=== PATIENT | female | born 1995 | race Caucasian/White ===

== ENCOUNTER 2023-01-07 23:27 | Emergency (ER) | payer MEDICAID, SELFPAY ==
[2023-01-07 23:37] VITALS: BP 122/89; PULSE 114; RESP 18; TEMP 36.5; O2SAT 100
[2023-01-08 00:25] VITALS: BP 123/83; PULSE 95; RESP 18; O2SAT 99
--- NOTE | 2023-01-08 01:33 | ED_ITS ---
HPI - General Adult General Chief complaint: Unspecified Complaint, Adult Stated complaint: Skin Problem Time Seen by Provider: 01/07/23 23:49 Related Data Previous Rx's Medication Instructions Recorded mupirocin 2 % topical ointment 1 applic topical BID #15 grams 01/08/23 Allergies Allergy/AdvReac Type Severity Reaction Status Date / Time No Known Drug Allergies Allergy Verified 01/07/23 23:36 PFSH PFSH Social History Do you use any of these nicotine containing products: Vaping Products Second hand tobacco smoke exposure: No How often do you have a drink containing alcohol: 2-3 times a week How many standard drinks containing alcohol do you have on a typical day: 1 or 2 How often do you have six or more drinks on one occasion: Never AUDIT-C Alcohol total score: 3 Non-prescribed substance use: denies use Exam Narrative: Exam Narrative: pleasant. nad. neck supple without LA oropharynx without inflammation. no swelling appreciated. removing band-aid at center of left cheek is ann marie-sized area of mild rubor, mild calor and centrally a 1/2 cm area with exudate/drainage. no fluctuance wiping away this central area, there is a 1/8 inch hole from which I am able to express a small amount of purulence which i collect a wound culture. applied bacitracin and loose gauze bandage Const: Vital Signs, click to edit/add: Vital Signs - 24 hr 01/07/23 23:37 01/08/23 00:25 Temperature 97.7 F Pulse Rate [Left P ulse Oximeter] 114 H 95 Respiratory Rate 18 18 Blood Pressure [Ri ght Upper Arm] 122/89 123/83 Pulse Oximetry 100 99 Oxygen Delivery Me thod Room Air Room Air Course Vital Signs Vital signs: Initial Vital Signs Temperature 97.7 F 01/07/23 23:37 Temperature Source Temporal Artery Scan 01/07/23 23:37 Pulse Rate 114 H 01/07/23 23:37 Pulse Rhythm Regular 01/07/23 23:37 Respiratory Rate 18 01/07/23 23:37 Blood Pressure 122/89 01/07/23 23:37 Blood Pressure Mean 100 01/07/23 23:37 Blood Pressure Position Sitting 01/07/23 23:37 Pulse Oximetry 100 01/07/23 23:37 Oxygen Delivery Method Room Air 01/07/23 23:37 Vital Signs Temperature 97.7 F 01/07/23 23:37 Pulse Rate 114 H 01/07/23 23:37 Respiratory Rate 18 01/07/23 23:37 Blood Pressure 122/89 01/07/23 23:37 Pulse Oximetry 100 01/07/23 23:37 Oxygen Delivery Method Room Air 01/07/23 23:37 Temperature 97.7 F 01/07/23 23:37 Pulse Rate 95 01/08/23 00:25 Respiratory Rate 18 01/08/23 00:25 Blood Pressure 123/83 01/08/23 00:25 Pulse Oximetry 99 01/08/23 00:25 Oxygen Delivery Method Room Air 01/08/23 00:25 Medical Decision Making MDM Narrative Medical decision making narrative: mild cellulitic change on verge of needing oral abx, already draining. Beata understandably quite concerned. should have some staph coverage. see pt discharge plan Discharge Plan Discharge Clinical Impression: Abscess, Cellulitis Patient Disposition: Home w/ Parent or Adult Condition: Stable Additional Instructions: Cleanse daily with mild soap and water. Change twice daily loose gauze dressing and prescription mupirocin antibiotic ointment until seeing essentially no drainage. Then continue with antibiotic ointment to complete a week. Watch for explosion in redness and swelling, spreading redness after 2 days, marked increase in purulent drainage, fever, uncontrolled pain. A wound culture will be pending here and we will contact you if it appears that we need to change antibiotic coverage. Doxycycline from [facility]. Prescriptions: New mupirocin 2 % ointment 1 applic topical BID Qty: 15 0RF Stand Alone Forms: [facility] Info Instructions
== END 2023-01-08 00:33 | disposition home or self-care (01) ==
LOC: ED 01-08 00:27
PROVIDERS: Emergency Provider Family Medicine
DX: L02.01 Cutaneous abscess of face (principal)
CPT/HCPCS: 10060; 87070; 87186; 99283; 99284

== ENCOUNTER 2023-09-19 21:26 | Emergency (ER) | payer MEDICAID, SELFPAY ==
[2023-09-19 21:29] VITALS: BP 112/78; PULSE 93; RESP 18; TEMP 36.8; O2SAT 98; BMI 26.6
--- NOTE | 2023-09-19 22:00 | ED.GENADULT ---
HPI - General Adult General Chief complaint: Extremity Pain/Injury, Upper Stated complaint: 39wks , left arm pain Time Seen by Provider: 09/19/23 21:30 History of Present Illness HPI narrative: This 28-year-old female is 1 week short of her due date in and comes in with redness and swelling in the left antecubital space. She had an iron infusion 5 days ago and again 3 days ago. She developed some redness yesterday and states that it has been spreading out since then. She does not report any fevers. She has erythema typical of a cellulitis in the left antecubital space where her IV was established. She did not have any symptoms at the time of the IV infusions but developed this a couple days after the last infusion. Related Data Home Medications Medication Instructions Recorded Confirmed docosahexaenoic acid 200 mg mg PO 08/30/23 09/04/23 capsule ( DHA) polymyxin B sulfate 10,000 1 drp ophthalmic (eye) Q3H 08/30/23 08/30/23 unit-trimethoprim 1 mg/mL eye drops sertraline 100 mg tablet 150 mg PO 08/30/23 09/04/23 Allergies Allergy/AdvReac Type Severity Reaction Status Date / Time No Known Drug Allergies Allergy Verified 09/04/23 11:17 Review of Systems Status of ROS: Reports: 10 or more systems reviewed and unremarkable except as noted in History and below Narrative: Constitutional: No fevers, no weight gain or loss. Eyes: No discharge. No vision changes. HENT: No congestion, no sore throat, no ear pain. Cardiovascular: No chest pain, no palpitations. Respiratory: No shortness of breath, no wheezes, no cough. Gastrointestinal: No abdominal pain, no vomiting, no diarrhea. Genitourinary: No dysuria, no hematuria. Musculoskeletal: Normal range of motion. Skin: No rashes, no pruritis. Left arm redness and pain with mild swelling. Neurological: No dizziness, weakness, sensory change, speech change. Endo/Heme/Allergies: No bruising or bleeding. No polydipsia. Pysch: no suicidality, no anxiety, no insomnia. All other systems reviewed and are negative. PFSH PFSH Social History Smoking Status: Never smoker Do you use any of these nicotine containing products: None Second hand tobacco smoke exposure: No How often do you have a drink containing alcohol: never How often do you have six or more drinks on one occasion: Never AUDIT-C Alcohol total score: 0 Non-prescribed substance use: denies use service: No Exam Narrative: Exam Narrative: Constitutional: Well-developed, well-nourished, no acute distress. HEENT: Normocephalic, atraumatic. Neck: Normal range of motion. Nontender. Supple. Heart: Intact distal pulses. Lungs: No chest discomfort. No wheezes, rhonchi, or rales. Abdomen: Gravid at full-term. Back: Normal range of motion. Extremities: Normal range of motion. No injury. Skin: Intact. Left antecubital fossa area has erythema with mild swelling and increased warmth typical of cellulitis. The area involved is approximately 6 x 8 cm. There is no swelling or pain in the upper arm proximal to this area. Neurologic: No altered sensation. No weakness. Alert and oriented. Psychiatric: No suicidality. No anxiety or depression. No insomnia. Nursing notes and vitals signs are reviewed. Const: Vital Signs, click to edit/add: Vital Signs - 24 hr 09/19/23 21:29 Temperature 98.2 F Pulse Rate [Pulse Oximeter] 93 Respiratory Rate 18 Blood Pressure [Ri ght Upper Arm] 112/78 Pulse Oximetry 98 Oxygen Delivery Me thod Room Air Course Vital Signs Vital signs: Initial Vital Signs Temperature 98.2 F 09/19/23 21:29 Temperature Source Temporal Artery Scan 09/19/23 21:29 Pulse Rate 93 09/19/23 21:29 Pulse Rhythm Regular 09/19/23 21:29 Respiratory Rate 18 09/19/23 21:29 Blood Pressure 112/78 09/19/23 21:29 Blood Pressure Mean 89 09/19/23 21:29 Blood Pressure Position Supine 09/19/23 21:29 Pulse Oximetry 98 09/19/23 21:29 Oxygen Delivery Method Room Air 09/19/23 21:29 Vital Signs Temperature 98.2 F 09/19/23 21:29 Pulse Rate 93 09/19/23 21:29 Respiratory Rate 18 09/19/23 21:29 Blood Pressure 112/78 09/19/23 21:29 Pulse Oximetry 98 09/19/23 21:29 Oxygen Delivery Method Room Air 09/19/23 21:29 Temperature 98.2 F 09/19/23 21:29 Pulse Rate 93 09/19/23 21:29 Respiratory Rate 18 09/19/23 21:29 Blood Pressure 112/78 09/19/23 21:29 Pulse Oximetry 98 09/19/23 21:29 Oxygen Delivery Method Room Air 09/19/23 21:29 Medical Decision Making MDM Narrative Medical decision making narrative: This 28-year-old female comes in with what appears to be a cellulitis in her left upper extremity after having infusions of iron. The symptoms occurred a couple days after her last infusion. She arrives with normal vital signs and he is otherwise in no acute distress. The patient received a prescription for Keflex. She has a due date for her coming up next week. She is in close touch with her OBGYN physicians in this regard and can follow up as needed. Discharge Plan Discharge Clinical Impression: Cellulitis Patient Disposition: Home, Self-Care Condition: Stable Additional Instructions: Take medication as prescribed. Follow up with MD as scheduled and needed. Return if worsening. Prescriptions: No Action sertraline 100 mg tablet 150 mg PO DHA 200 mg capsule PO polymyxin B sulf-trimethoprim 10,000 unit- 1 mg/mL drops 1 drp ophthalmic (eye) Q3H Rx Instructions: while awake; do not exceed 6 doses in 24 hours Follow Up/Referrals: Provider,Not a Local [Primary Care Provider] - Stand Alone Forms: [employer] Info Instructions
[2023-09-19 22:11] VITALS: BP 112/78; PULSE 93; RESP 18; TEMP 36.8
[2023-09-19 22:22] VITALS: BP 110/74; PULSE 87; RESP 18; TEMP 36.8; O2SAT 98
== END 2023-09-19 22:10 | disposition home or self-care (01) ==
PROVIDERS: Emergency Provider Emergency Medicine Emergency Medical Services
DX: L03.114 Cellulitis of left upper limb (principal)
CPT/HCPCS: 99283; 99284

== ENCOUNTER 2024-02-19 23:31 | Emergency (ER) | payer MEDICAID, SELFPAY ==
[2024-02-19 23:37] VITALS: BP 119/83; PULSE 91; RESP 20; TEMP 36.3; O2SAT 100; BMI 20.4
[2024-02-20 00:35] LABS: Appearance Urine Cloudy (Clear); Bilirubin Urine Negative (Negative); Blood Urine 2+ (Negative); Color Urine Yellow (Yellow); Glucose Urine Negative (Negative); Ketones Urine Negative (Negative); Leukocyte Esterase Urine 3+ (Negative); Nitrite Urine Negative (Negative); Protein Urine Negative (Negative); Urobilinogen Urine 0.2 (0.2-1.0)
[2024-02-20 00:48] LABS: Ur HCG Qualitative* Negative (Negative)
[2024-02-20 00:49] LABS: Bacteria Urine Many; Squamous Epithelial Cell Urine Many (None-Few); WBC Urine >100 (0-5)
--- NOTE | 2024-02-20 00:49 | ED.FEMALEGU ---
HPI - Female Genitourinary General Time Seen by Provider: 00:49 Date Seen: 02/20/24 Chief complaint: Urogenital Problems, Female Stated complaint: possible UTI Time Seen by Provider: 02/19/24 23:57 Source: patient and RN notes reviewed Mode of arrival: ambulatory Limitations: no limitations History of Present Illness HPI Narrative: This 28-year-old female is coming in with concern of urinary tract infections. She had her last 1 about 4 months ago while she was with her daughter. She is still breast-feeding couple times a day. She is not resume menstrual cycles yet. She has had no back pain, no fevers. She started with dysuria and frequency with some lower abdominal cramping. Is noted no hematuria. She has been hospitalized once for probable pyelonephritis but states she does not feel anything like that. MD elicited complaint: dysuria and UTI Related Data Home Medications Medication Instructions Recorded Confirmed docosahexaenoic acid 200 mg mg PO 08/30/23 09/04/23 capsule ( DHA) polymyxin B sulfate 10,000 1 drp ophthalmic (eye) Q3H 08/30/23 08/30/23 unit-trimethoprim 1 mg/mL eye drops sertraline 100 mg tablet 150 mg PO 08/30/23 09/04/23 dextroamphetamine-amphetamine ER 1 cap PO DAILY 02/19/24 02/19/24 20 mg 24hr capsule,extend release Allergies Allergy/AdvReac Type Severity Reaction Status Date / Time No Known Drug Allergies Allergy Verified 02/19/24 23:37 Review of Systems Narrative: As per HPI. PFSH PFSH Social History Smoking Status: Never smoker Do you use any of these nicotine containing products: None Second hand tobacco smoke exposure: No How often do you have a drink containing alcohol: never How often do you have six or more drinks on one occasion: Never AUDIT-C Alcohol total score: 0 Non-prescribed substance use: denies use service: No Exam Const: Vital Signs, click to edit/add: Vital Signs - 24 hr 02/19/24 23:37 Temperature 97.3 F L Pulse Rate [Right Pulse Oximeter] 91 Respiratory Rate 20 Blood Pressure [Ri ght Upper Arm] 119/83 Pulse Oximetry 100 Oxygen Delivery Me thod Room Air Patient is alert, interactive. Lungs are clear come good air entry. CV regular rate rhythm no murmur. Abdomen is soft, nontender, nondistended, no organomegaly. Documenting provider has reviewed patient's vital signs: yes Course Course ED Course: Will await urinalysis, if positive treat accordingly. She would prefer medicines from [facility]. Vital Signs Vital signs: Initial Vital Signs Temperature 97.3 F L 02/19/24 23:37 Temperature Source Temporal Artery Scan 02/19/24 23:37 Pulse Rate 91 02/19/24 23:37 Pulse Strength 3+ Normal 02/19/24 23:37 Respiratory Rate 20 02/19/24 23:37 Blood Pressure 119/83 02/19/24 23:37 Blood Pressure Mean 95 02/19/24 23:37 Blood Pressure Position Sitting 02/19/24 23:37 Pulse Oximetry 100 02/19/24 23:37 Oxygen Delivery Method Room Air 02/19/24 23:37 Vital Signs Temperature 97.3 F L 02/19/24 23:37 Pulse Rate 91 02/19/24 23:37 Respiratory Rate 20 02/19/24 23:37 Blood Pressure 119/83 02/19/24 23:37 Pulse Oximetry 100 02/19/24 23:37 Oxygen Delivery Method Room Air 02/19/24 23:37 Temperature 97.3 F L 02/19/24 23:37 Pulse Rate 91 02/19/24 23:37 Respiratory Rate 20 02/19/24 23:37 Blood Pressure 119/83 02/19/24 23:37 Pulse Oximetry 100 02/19/24 23:37 Oxygen Delivery Method Room Air 02/19/24 23:37 MDM - Female Genitourinary Lab Data Labs: Lab Results 02/19/24 Range/Units 23:44 Urine Color Yellow (Yellow) Urine Appearance Cloudy A (Clear) Urine pH 6.0 (5.0-8.5) Ur Specific [place] 1.020 (1.000-1.030) Urine Protein Negative (Negative) Urine Glucose (UA) Negative (Negative) Urine Ketones Negative (Negative) Urine Blood 2+ A (Negative) Urine Nitrite Negative (Negative) Urine Bilirubin Negative (Negative) Urine Urobilinogen 0.2 (0.2-1.0) Ur Leukocyte Esterase 3+ A (Negative) Urine RBC 10-25 A (0-2) Urine WBC >100 A (0-5) Ur Squamous Epith Cells Many A (None-Few) Urine Bacteria Many A (None) Urine HCG, Qual Negative (Negative) Discharge Plan Discharge Clinical Impression: Urinary tract infection Qualifiers: Urinary tract infection type: acute cystitis Hematuria presence: without hematuria Qualified Code(s): N30.00 - Acute cystitis without hematuria Patient Disposition: Home, Self-Care Condition: Stable Instructions: Urinary Tract Infection in Women (ED) Additional Instructions: Drink plenty of fluids to help dilute urine. Take antibiotics as prescribed, start Keflex and follow-up prescription. If your urinary symptoms are not improving in the next couple of days or you feel your worsening at any point, do recommend seeking re-evaluation. Activity Level: No Restrictions Prescriptions: No Action sertraline 100 mg tablet 150 mg PO DHA 200 mg capsule PO polymyxin B sulf-trimethoprim 10,000 unit- 1 mg/mL drops 1 drp ophthalmic (eye) Q3H Rx Instructions: while awake; do not exceed 6 doses in 24 hours dextroamphetamine-amphetamine 20 mg capsule,extended release 24hr 1 cap PO DAILY Follow Up/Referrals: Provider,Not a Local [Primary Care Provider] - Stand Alone Forms: [facility] Info Instructions
--- OUTSIDE RECORDS SUMMARY | 2024-02-20 00:59 | XMS_ITS | Referral Summary ---
Author Name Unknown Organization [facility] Address [address] [place] [id number] Care Team Providers Care Frame Wirer Name Role Phone No Ref-Primary, Physician Primary Care Provider Cristiana Israel PA-C Unavailable [phone] Allergies No known active allergies Medications Medication Sig Dispensed Refills Start Date End Date Status prochlorperazine (COMPAZINE) 10 MG tabletIndications:Mike sea Take 1 tablet (10 mg) by mouth every 6 hours as needed for nausea or vomiting 90 tablet 03/22/2021 Active Vit-Fe Fumarate-FA ( MULTIVITAMIN PLUS IRON) 27-1 MG TABS Take 1 tablet by mouth daily Active acetaminophen (TYLENOL) 325 MG tabletIndications:VBA C (vaginal after ) Take 2 tablets (650 mg) by mouth every 4 hours as needed for mild pain or fever (greater than or equal to 38?? C /100.4?? F (oral) or 38.5?? C/ 101.4?? F (core).) 09/25/2023 Active docusate sodium (COLACE) 100 MG capsuleIndications:VB AC (vaginal after ) Take 1 capsule (100 mg) by mouth daily 09/25/2023 Active ferrous fumarate 65 mg, [place]. FE,-Vitamin C 125 mg (VITRON C) 65-125 MG TABS tabletIndications:VBA C (vaginal after ) Take 1 tablet by mouth daily 09/25/2023 Active ibuprofen (ADVIL/MOTRIN) 800 MG tabletIndications:VBA C (vaginal after ) Take 1 tablet (800 mg) by mouth every 6 hours as needed for other (cramping) 09/25/2023 Active sertraline (ZOLOFT) 100 MG tabletIndications:KAYLEE (generalized anxiety disorder) Take 1.5 tablets (150 mg) by mouth daily 09/25/2023 Active Active Problems Problem Noted Date Diagnosed Date Depressive disorder 09/25/2023 KAYLEE (generalized anxiety disorder) 09/25/2023 (vaginal after ) 09/24/2023 Iron deficiency anemia [place] to inadequate dietary iron intake 09/11/2023 Anemia complicating 09/11/2023 Adverse effect of iron 09/11/2023 Overview: Intolerance to oral iron Attention deficit hyperactiv ity disorder (ADHD), unspecified ADHD type 02/13/2021 Indication for care in labor and delivery, antep artum 04/16/2018 Resolved Problems Problem Noted Date Diagnosed Date Resolved Date 09/23/2023 09/25/2023 Immunizations Name Administration Dates Next Due Flu, Unspecified 09/22/2006 HEPATITIS A (PEDS 12M-18Y) 08/21/2004 HPV Quadrivalent 03/24/2008,12/16/2006, 6 HepA-Peds, Unspecified 09/22/2006 Hepatitis B, Adult 02/27/2021 Influenza (IIV3) PF 09/21/2003 Influenza Vaccine >6 months,quad, PF ,10/05/2019,08/26/2018,2015 MMR 08/26/2018 Meningococcal ACWY (Menactra??) 09/07/2006 TDAP Vaccine (Adacel) 08/07/2014 Td (Adult), Adsorbed 08/21/2004 Social History Tobacco Use Types Packs/Day Years Used Date Smoking Tobacco: Never Smokeless Tobacco: Never Alcohol Use Standard Drinks/Week Comments Not Currently 0 (1 standard drink = 0.6 oz pur e alcohol) 3 drinks/week PHQ-2 Answer Date Recorded PHQ-2 Score 1 08/07/2021 [place] Depression Scale Answer Date Recorded Last EPDS Total Score Not on file 09/25/2023 The thought of harming myself has occurred to me . Never 09/25/2023 Adolescent Education Answer Date Record ed Getting School Help Needed Not on file 08/04 Sex and Gender Information Value Date Recorded Sex Assigned at Not on file Gender Identity Female 02/19/2021 10:18 AM CDT Sexual Orientation Not on file Last Filed Vital Signs Vital Sign Reading Time Taken Comments Blood Pressure 104/61 09/25/2023 8:58 AM [employer] Pulse 66 09/25/2023 8:58 AM [employer] Temperature 37 ??C (98.6 ??F) 09/25/2023 8:58 AM [employer] Respiratory Rate 16 09/25/2023 8:58 AM [employer] Oxygen Saturation 99% 09/24/2023 4:10 AM [employer] Inhaled Oxygen Concentration - - Weight 62.4 kg (137 lb 9.1 oz) 09/25/2023 12:11 PM [employer] Height 160 cm (5' 3) 09/23/2023 8:04 AM [employer] Body Mass Index 24.37 09/23/2023 8:04 AM [employer] Plan of Treatment Not on file Procedures Procedure Name Priority Date/Time Associated Diagnosis Comments GYNECOLOGIC CYTOLOGY Routine 03/09/2023 1:39 PM CDT Encounter for screening for malignant neoplasm of cervix HIV ANTIGEN ANTIBODY COMBO Routine 03/09/2023 1:37 PM CDT Encounter for supervision of normal , unspecified, first trimester HEPATITIS C ANTIBODY Routine 03/09/2023 1:37 PM CDT Encounter for supervision of normal , unspecified, first trimester from Last 3 Months or Most Recently Relevant to Health Maintenance Results * Gynecologic Cytology (PAP) (03/09/2023 1:39 PM CDT) Interpretation Negative for Intraepithelial Lesion or Malignancy (NILM) 03/12/2023 8:57 AM CDT [facility] Comment Papanicolaou Test Limitations: Cervical cytology is a screening test with limited sensitivity, and regular screening is critical for cancer prevention. Pap tests are primarily effective for the diagnosis/prevent ion of squamous cell carcinoma, not adenocarcinoma or other cancers. 03/12/2023 8:57 AM CDT [facility] Specimen Adequacy Satisfactory for evaluation, endocervical/burgess sformation zone component present 03/12/2023 8:57 AM CDT [facility] Clinical Information 03/12/2023 8:57 AM CDT [facility] LMP/Menopause Date 11-28-2022 03/12/2023 8:57 AM CDT [facility] Reflex Testing Yes if ASCUS 03/12/20 8:57 AM CDT [facility] Previous Abnormal? No 03/12/2023 8:57 AM CDT [facility] Previous Abnormal Diagnosis Negative 03/12/2023 8:57 AM CDT [facility] Performing Labs The technical component of this testing was completed at [facility] 03/12/2023 8:57 AM CDT [facility] Brushing ENDOCERVICAL STRUCTURE / Unknown 03/09/2023 1:39 PM CDT 03/09/2023 3:34 PM CDT Fatoumata Aguilar APRN PUBLIC HEALTH EPIDEMIOLOGIST LAB - [facility] [facility] [address] [facility], Room [address] [phone] * HIV Antigen Antibody Combo (03/09/2023 1:37 PM CDT) Pathologist [facility] HIV Antigen Antibody Combo Nonreactive Nonreactive 03/10/2023 10:57 AM CDT [facility]/PROT/EN DO Comment:HIV-1 p24 Ag & HIV-1 /HIV-2 Ab Not Detected Blood BLOOD SPECIMEN / Unknown Client Draw / Unknown 03/09/2023 1:37 PM CDT 03/09/2023 3:44 PM CDT Fatoumata Aguilar APRN PUBLIC HEALTH EPIDEMIOLOGIST LAB - BLOOD OR DERABLES [facility]ENDO [facility]Prot[facility]Endo [address] [facility], [address] [phone] * Hepatitis C antibody (03/09/2023 1:37 PM CDT) Hepatitis C Antibody Nonreactive Nonreactive 03/10/2023 11:36 AM CDT [facility]/EN DO Blood BLOOD SPECIMEN / Unknown Client Draw / Unknown 03/09/2023 1:37 PM CDT 03/09/2023 3:44 PM CDT Narrative [facility]ENDO - 03/10/2023 11:36 AM CDT Assay performance characteristics have not been established for newborns, infants, and children. Fatoumata Aguilar APRN PUBLIC HEALTH EPIDEMIOLOGIST LAB - BLOOD OR DERABLES [facility]END[facility]/Prot/Endo [address] [facility] [address], Room [address] [phone] from Last 3 Months or Most Recently Relevant to Health Maintenance Advance Directives For more information, please contact: [phone] * Full Code (Latest Code Status on File) Date Activated Date Inactivated Comments 09/23/2023 8:58 AM 09/24/2023 7:00 AM All basic an d advanced life-sustaining interventions are performed as appropriate Question Answer Comments Code status determined by: Discussion with patie nt/ legal decision maker Care Teams Frame Wirer Relationship Specialty Start Date End Date No Ref-Primary, Physician PCP - General 02/13/21 Cristiana Israel, PARosyC [address] [facility] [place] [place] [address] Assigned PCP 12/13/22
--- OUTSIDE RECORDS SUMMARY | 2024-02-20 00:59 | XMS_ITS | Encounter Summary ---
Author Name Unknown Organization [facility] Address [address] [place] [address] Care Team Providers Care State Assessed Properties Director Name Role Phone No Ref-Primary, Physician Primary Care Provider Cristiana Israel-C Unavailable Cristiana IsraelC Unavailable Cristiana Israel-C Unavailable Reason for Visit * Reason Onset Date Comments MyChart Communication 02/19/2021 Encounter Details Date Type Department Care Team (Late st Contact Info) Description 02/19/2021 [facility] [address] [id number] Cristiana Israel PA-C [address] [place] [id number] MyChart Communication Social History Tobacco Use Types Packs/Day Years Used Date Smoking Tobacco: Never Smokeless Tobacco: Never Alcohol Use Standard Drinks/Week Comments No 0 (1 standard drink = 0.6 oz pur e alcohol) PHQ-2 Answer Date Recorded PHQ-2 Total Score (Adult) - Positive if 3 or more points; Administer PHQ-9 if positive 3 02/19/2021 Sex and Gender Information Value Date Recorded Sex Assigned at Not on file Gender Identity Female 02/19/2021 10:18 AM CDT Sexual Orientation Not on file COVID-19 Exposure Response Date Recorded In the last month, have you been in contact with someone who was confirmed or suspected to have Coronavirus / COVID-19? No / Unsure 02/13/2021 11:43 AM CDT documented as of this encounter Plan of Treatment Not on file documented as of this encounter Visit Diagnoses Not on filedocumented in this encounter Additional Health Concerns Assessment Noted Time PHQ-9 Depression Total Score: 5 02/21/20 7:01 AM CDT documented as of this encounter Care Teams State Assessed Properties Director Relationship Specialty Start Date End Date No Ref-Primary, Physician PCP - General 02/13/21 Cristiana Israel PA-C [address] [facility] [address] [place], [place] [id number] Assigned PCP 01/25/21 10/03/22 Cristiana Israel PA-C [address] [facility] [address] [address] [place], [place] [id number] Assigned PCP 12/13/22 Cristiana Israel PA-C [address] [facility] [address] [place], [place] [phone] Assigned Pain Medication Provider 09/26/23 11/11/23 documented as of this encounter
--- OUTSIDE RECORDS SUMMARY | 2024-02-20 00:59 | XMS_ITS | Clinical Summary ---
Author Name Unknown Organization [place] Address [address] [place] [address] Care Team Providers Care Supply Chain Generalist Name Role Phone No Ref-Primary, Physician Primary Care Provider Cristiana Israel PA-C Unavailable [phone] Allergies No known active allergies Medications [...] daily 09/25/2023 Active ferrous fumarate 65 mg, nulato. FE,-Vitamin C 125 mg (VITRON C) 65-125 [...] Answer Date Recorded PHQ-2 Score 1 08/07/2021 Mineral Depression Scale Answer Date Recorded Last EPDS [...] Comments Blood Pressure 104/61 09/25/2023 8:58 AM MARKER HAND Pulse 66 09/25/2023 8:58 AM MARKER HAND Temperature 37 ??C (98.6 ??F) 09/25/2023 8:58 AM MARKER HAND Respiratory Rate 16 09/25/2023 8:58 AM MARKER HAND Oxygen Saturation 99% 09/24/2023 4:10 AM MARKER HAND Inhaled Oxygen Concentration - - Weight 62.4 kg (137 lb 9.1 oz) 09/25/2023 12:11 PM MARKER HAND Height 160 cm (5' 3) 09/23/2023 8:04 AM MARKER HAND Body Mass Index 24.37 09/23/2023 8:04 AM MARKER HAND Plan of Treatment Health Maintenance Due Date Last Done Comments HEPATITIS B IMMUNIZATION (2 of 3 - 19+ 3-dose series) 03/27/2021 02/27/2021 ANNUAL REVIEW OF HM ORDERS 08/07/2022 08/07/2021 YEARLY PREVENTIVE VISIT 01/30/2023 01/30/2022 COVID-19 Vaccine ( season) 2023 INFLUENZA VACCINE (#1) 2023 , 10/05/2019, 08/26/2018, Additional history exists PHQ-2 (once per calendar year) 2023 08/07/2021, 08/07/2021, 02/19/2021, Additional history exists ADVANCE CARE PLANNING 02/13/2026 02/13/2021 PAP 03/09/2026 03/09/2023 DTAP/TDAP/TD IMMUNIZATION (5 - Td or Tdap) 08/18/2033 08/18/2023, 06/25/2018, 08/07/2014, Additional history exists MENINGITIS IMMUNIZATION Aged Out 09/07/2006 No l onger eligible based on patient's age to complete this topic HPV IMMUNIZATION Completed 03/24/2008, , 09/22/2006 HEPATITIS C SCREENING Discontinued 03/09/2023 HIV SCREENING Discontinued 03/09/2023 IPV IMMUNIZATION Aged Out No longer e ligible based on patient's age to complete this topic Pneumococcal Vaccine: Pediatrics (0 to 5 Years) and At-Risk Patients (6 to 64 Years) Aged Out No longer eligible based on patient's age to complete this topic RSV MONOCLONAL ANTIBODY Aged Out No l onger eligible based on patient's age to complete this topic Procedures Procedure Name Priority Date/Time Associated Diagnosis [...] component of this testing was completed at [facility] 03/12/2023 8:57 AM CDT SPECIALTY LABS Brushing ENDOCERVICAL STRUCTURE / Unknown 03/09/2023 1:39 PM CDT 03/09/2023 3:34 PM CDT Fatoumata Aguilar APRN, CNP LAB - [facility] A P SPECIALTY LABS Specialty Lab [address] [facility], [address] [address], [facility] [phone] * HIV Antigen Antibody Combo (03/09/2023 1:37 PM CDT) HIV Antigen Antibody Combo Nonreactive Nonreactive 03/10/2023 10:57 AM CDT SPECIALTY CORE/PROT/EN DO Comment:HIV-1 p24 Ag & HIV-1 /HIV-2 Ab Not Detected Blood BLOOD SPECIMEN / Unknown Client Draw / Unknown 03/09/2023 1:37 PM CDT 03/09/2023 3:44 PM CDT Fatoumata Aguilar APRN, CNP LAB - BLOOD OR DERABLES SPECIALTY CORE/PROT/ENDO UM Specialty Core/Prot/Endo [address] [facility], [address] [address], [facility] [phone] * Hepatitis C antibody (03/09/2023 1:37 PM CDT) Hepatitis C Antibody Nonreactive Nonreactive 03/10/2023 11:36 AM CDT SPECIALTY CORE/PROT/EN DO Blood BLOOD SPECIMEN / Unknown Client Draw / Unknown 03/09/2023 1:37 PM CDT 03/09/2023 3:44 PM CDT Narrative SPECIALTY CORE/PROT/ENDO - 03/10/2023 11:36 AM CDT Assay performance characteristics have not been established for newborns, infants, and children. Fatoumata Wesser MECHANIC AND WELDER SENIOR FINANCIAL ANALYST LAB - BLOOD OR DERABLES UM SPECIALTY CORE/PROT/ENDO UM Specialty Core/Prot/Endo [address], Room [address] [phone] from Last 3 Months or Most Recently Relevant to Health Maintenance Advance Directives For more information, please contact: [phone] * Full Code (Latest Code Status on File) Date Activated Date Inactivated Comments 09/23/2023 8:58 AM 09/24/2023 7:00 AM All basic an d advanced life-sustaining interventions are performed as appropriate Question Answer Comments Code status determined by: Discussion with patie nt/ legal decision maker Care Teams Supply Chain Generalist Relationship Specialty Start Date End Date No Ref-Primary, Physician PCP - General 02/13/21 Cristiana Israel, PARosyC [address] [facility] [place] [id number] Assigned PCP 12/13/22
--- OUTSIDE RECORDS SUMMARY | 2024-02-20 00:59 | XMS_ITS | Encounter Summary ---
Author Name Unknown Organization [place] Address [address] [place] [address] Care Team Providers Care Novelty Candy Maker Name Role Phone No Ref-Primary, Physician Primary Care Provider Cristiana Israel-C Unavailable Cristiana IsraelC Unavailable Cristiana Israel-C Unavailable Reason for Visit * Reason Onset Date Comments MyChart Communication 02/20/2021 Encounter Details Date Type Department Care Team (Late st Contact Info) Description 02/20/2021 [facility] [address] [address] Cristiana Israel PA-C [address] [place] [address] MyChart Communication Social History Tobacco Use [...] documented as of this encounter Visit Diagnoses Diagnosis KAYLEE (generalized anxiety disorder)- Primary Generalized anxiety disorder Attention deficit hyperactivity disorder (ADHD), unspecified ADHD type Nausea Nausea alone Acute cystitis without hematuria Acute cystitis documented in this encounter Additional Health Concerns Assessment Noted Time PHQ-9 Depression Total Score: 5 02/21/20 21 7:01 AM CDT documented as of this encounter Care Teams Novelty Candy Maker Relationship Specialty Start Date End Date No Ref-Primary, Physician PCP - General 02/13/21 Cristiana Israel PA-C [address] [facility] [place] [id number] Assigned PCP 01/25/21 10/03/22 Cristiana Israel PA-C [address] [facility] [place] [id number] Assigned PCP 12/13/22 Cristiana Israel PA-C [address] [facility] [place] [id number] Assigned Pain Medication Provider 09/26/23 11/11/23 documented as of this encounter
--- OUTSIDE RECORDS SUMMARY | 2024-02-20 00:59 | XMS_ITS | Encounter Summary ---
Author Name Unknown Organization [place] Address [address] [place] [address] Care Team Providers Care Travel Money Advisor Name Role Phone No Ref-Primary, Physician Primary Care Provider Cristiana Israel-Akbar Unavailable [phone] Cristiana Israel PAVern Unavailable [phone] Cristiana Israel PA-C Unavailable [phone] Encounter Details Date Type Department Care Team (Late st Contact Info) Description 02/14/2021 [facility] Medical Advice [address] [address] Sultana Carvalho Social History Tobacco Use Types Packs/Day Years Used Date Smoking Tobacco: Never Smokeless Tobacco: Never Alcohol Use Standard Drinks/Week Comments No 0 (1 standard drink = 0.6 oz pur e alcohol) PHQ-2 Answer Date Recorded PHQ-2 Score 0 02/13/2021 Sex and Gender Information Value Date Recorded [...] Diagnoses Not on filedocumented in this encounter Care Teams Travel Money Advisor Relationship Specialty Start Date End Date No Ref-Primary, Physician PCP - General 02/13/21 Cristiana Israel PA-C [address] [facility] [place] [id number] Assigned PCP 01/25/21 10/03/22 Cristiana Israel PA-C [address] [facility] [place] [id number] Assigned PCP 12/13/22 Cristiana Israel PA-C [address] [facility] [address] [place] [phone] Assigned Pain Medication Provider 09/26/23 11/11/23 documented as of this encounter
--- OUTSIDE RECORDS SUMMARY | 2024-02-20 00:59 | XMS_ITS | Encounter Summary ---
Author Name Unknown Organization [facility] Address [address] [place] [address] Care Team Providers Care Bilingual Hr Generalist Name Role Phone No Ref-Primary, Physician Primary Care Provider Cristiana Israel PA-C Unavailable [phone] Cristiana Israel PA-C Unavailable [phone] Cristiana Israel PA-C Unavailable [phone] Encounter Details Date Type Department Care Team (Late st Contact Info) Description 07/10/2021 [facility] Medical Advice [address] [address] Eloisa Mckeon, [facility] Social History Tobacco Use Types Packs/Day Years [...] AM CDT Sexual Orientation Not on file documented as of this encounter Plan of Treatment Not on file documented as of this encounter Visit Diagnoses Not on filedocumented in this encounter Additional Health Concerns Assessment Noted Time PHQ-9 Depression Total Score: 5 02/21/20 7:01 AM CDT documented as of this encounter Care Teams Bilingual Hr Generalist Relationship Specialty Start Date End Date No Ref-Primary, Physician PCP - General 02/13/21 Cristiana Israel PA-C [address] [facility] [place] [id number] Assigned PCP 01/25/21 10/03/22 Cristiana Israel PA-C [address] [facility] [place] [id number] Assigned PCP 12/13/22 Cristiana Israel PA-C [address] [facility] [address] [place] [address]23[address] Assigned Pain Medication Provider 09/26/23 11/11/23 documented as of this encounter
--- OUTSIDE RECORDS SUMMARY | 2024-02-20 00:59 | XMS_ITS | Clinical Summary ---
Author Name Unknown Organization [facility] Address [place], [place] [address] Care Team Providers Care Step Down Nurse Name Role Phone Cristiana Israel Primary Care Provider [phone] Allergies No known active allergies Medications Medication Sig Dispensed Refills Start Date End Date Status dextroamphetamine-a mphetamine (ADDERALL XR) 20 mg Extended-Release capsuleIndications: Attention deficit hyperactivity disorder (ADHD), unspecified ADHD type Take 1 Capsule (20 mg) by mouth once daily. 30 Capsule 01/03/2024 Active dextroamphetamine-a mphetamine (Adderall XR) 30 mg Extended-Release capsuleIndications: Attention deficit hyperactivity disorder (ADHD), predominantly inattentive type Take 1 Capsule (30 mg) by mouth once daily. 30 Capsule 01/26/2024 02/25/2024 Active dextroamphetamine-a mphetamine (Adderall XR) 30 mg Extended-Release capsuleIndications: Attention deficit hyperactivity disorder (ADHD), predominantly inattentive type Take 1 Capsule (30 mg) by mouth once daily. 30 Capsule 02/25/2024 03/26/2024 Active dextroamphetamine-a mphetamine (Adderall XR) 30 mg Extended-Release capsuleIndications: Attention deficit hyperactivity disorder (ADHD), predominantly inattentive type Take 1 Capsule (30 mg) by mouth once daily. 30 Capsule 03/26/2024 Active sertraline (ZOLOFT) 100 mg tabletIndications:D epression, recurrent (HC) Take 1 tablet by mouth once daily 30 Tablet 03/31/2023 01/26/2024 Discontinue d(*Med complete/Re gimen complete/Le tylor of care change) iron,carbonyl-vitam in C (Vitron-C) 65 mg iron- 125 mg Delayed-Release tablet Take 1 Tablet by mouth once daily. 09/25/2023 01/26/2024 Discontinue d(*Med complete/Re gimen complete/Le tylor of care change) dextroamphetamine-a mphetamine (Adderall XR) 20 mg Extended-Release capsuleIndications: Attention deficit hyperactivity disorder (ADHD), predominantly inattentive type Take 1 Capsule (20 mg) by mouth once daily. 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 KAYLEE (generalized anxiety disorder) 09/25/2023 (vaginal after ) 09/24/2023 Depressive disorder 02/03/2023 ASCUS of cervix with negative high risk HPV 01/17 Overview: 01/30/2022 ASCUS/HPV negative. Plan: Pap/HPV due 01/2025 Attention deficit hyperactivity disorder (ADHD) 01/15/2021 Overview: Per patient report Encounters Date Type Department Care Team Description 01/26/2024 11:40 AM CDT Office Visit [facility] [id number] [place] [phone] Lamar Horton MD Medication Management 01/26/2024 Travel 12/30/2023 1:10 PM CDT Telemedicine [facility] [address] [place] [phone] Lamar Horton MD Medication Management (Adderall ) 12/30/2023 Travel from Last 3 Months Immunizations Name Administration Dates Next Due Hepatitis A (Peds) 08/21/2004 Hepatitis A (Peds),Unspecified 09/22/2006 Hepatitis B (Adult) 02/27/2021 Human Papilloma Virus Vaccine 03/24/2008, 007,09/22/2006 Influenza Virus, Unspecified 09/21/2003 Influenza, IIV4 06/12/2020,10/05/2019,08/26/2018 ,06/18/2016 MMR 08/26/2018 Meningococcal Vaccine (Menactra) 09/07/2006 Td (Age >=7 Years) 08/21/2004 Tdap 08/18/2023,06/25/2018,08/07/2014 Family History Medical History Relation Name Comments No Known Problems Father No Known Problems Mother Relation Name Status Comments Father Mother Social History Tobacco Use Types Packs/Day Years Used Date Smoking Tobacco: Former Cigarettes Smokeless Tobacco: Never Tobacco Cessation:Counseling Given: No Alcohol Use Standard Drinks/Week Comments Yes 3 (1 standard drink = 0.6 oz pur e alcohol) PHQ-2 Answer Date Recorded PHQ-2 TOTAL SCORE 2 03/04/2023 Social Connections Answer Date Recorded Frequency of Communication with Friends and Fami ly Not on file 02/02/2023 Financial Resource Strain Answer Date R ecorded Difficulty of Paying Living Expenses 3 01/30/2022 Difficulty of Paying Living Expenses Not on file 01/30/2022 Food Insecurity Answer Date Recorded Worried About Running Out of Food in the Last Ye ar 1 01/30/2022 Transportation Needs Answer Date Record ed Lack of Transportation (Medical) 1 01/30/2022 Housing Stability Answer Date Recorded Unable to Pay for Housing in the Last Year 1 01/30/2022 Sex and Gender Information Value Date Recorded Sex Assigned at Not on file Gender Identity Not on file Sexual Orientation Not on file Obstetrics History Para Term AB IAB SAB Ectopic Multiple Livin g Live Births 4 2 2 2 1 2 2 Date Outcome GA Total Labor Labor/2nd/3rd Weight Sex Delivery Anes PTL Yasmine A1 A5 Name Cl in AB IAB 08/23 Term 39w 0d 3.88 kg (8 lb 9 oz) M CS-LTranv Spina l N Nelsy ng 8 9 STEAR NS,JÚNIOR Tyson MD Delivery Location:[facility] Comments:elective jacqueline ction r/t macrosomia 09/24 Term 39w 6d 5h 03m 2h 24m/2h 35m/0h 04m 3.47 kg (7 lb 10.4 oz) F Epidu ral N Nelsy ng 6 7 Shahla Jiménez DO Complications:None Delivery Location:[facility] ( [facility] AND [facility]ERY) Last Filed Vital Signs Vital Sign Reading Time Taken Comments Blood Pressure 112/66 01/26/2024 11:42 AM CDT Pulse 70 01/26/2024 11:42 AM CDT Temperature - - Respiratory Rate - - Oxygen Saturation - - Inhaled Oxygen Concentration - - Weight 57.6 kg (127 lb) 01/26/2024 11:42 AM CDT Height 161.3 cm (5' 3.5) 01/26/2024 11:42 AM CD T Body Mass Index 22.14 01/26/2024 11:42 AM CDT Plan of Treatment Health Maintenance Due Date Last Done Comments HIV for age 15-65 2008 Hepatitis C screening for age 18-79 2011 COVID-19 vaccine series (2022- season) 2023 Depression screening for age 12+ 03/04/2024 03/04/2023, 03/03/2023, 01/30/2022, Additional history exists Influenza for age 9-49 06/19/2024 , 10/05/2019, 08/26/2018, Additional history exists BMI (ht and wt on same day) for age 18+ 01/25/2025 01/26/2024, 01/30/2022 Pap test for age 21-65 01/30/2025 01/30/2022, 2021 Tetanus booster 08/18/2033 08/18/2023, 04/2018, 08/07/2014, Additional history exists Tdap Completed 08/18/2023, 04/2018, 08/07/2014 Pneumococcal series for age 6-64 Aged Out No longer eligible based on patient's age to complete this topic Procedures Procedure Name Priority Date/Time Associated Diagnosis Comments HPV THIN PREP Routine 01/30/2022 10:00 AM CDT Screening for cervical cancer from Last 3 Months or Most Recently Relevant to Health Maintenance Results * HPV HIGH RISK (01/30/2022 10:00 AM CDT) TYPE 16 Negative Negative 02/03/2022 4:31 PM CDT [facility] TYPE 18 Negative Negative 02/03/2022 4:31 PM CDT [facility] OTHER HIGH RISK TYPES Negative Negative 02/03/2022 4:31 PM CDT [facility] Other (Cervical) Non-Blood / Unknown 01/30/2022 10:00 AM CDT 01/31/2022 10:05 AM CDT Narrative [facility] - 02/03/2022 4:31 PM CDT HPV types 16, 18, 31, 33, 35, 39, 45, 51, 52, 56, 58, 59, 66 and 68 DNA were undetectable or below the pre-set threshold. Methodology: Fadi Bri 4800 HPV Test Estefany RAMACHANDRAN MICROBIOLO GY [facility] [address] [place] [address], from Last 3 Months or Most Recently Relevant to Health Maintenance Care Teams Step Down Nurse Relationship Specialty Start Date End Date Cristiana Israel PA [address] [facility] [place] [id number] PCP - General Physician Air Conditioning Unit Tester 11/19/21
--- OUTSIDE RECORDS SUMMARY | 2024-02-20 00:59 | XMS_ITS | Encounter Summary ---
Author Name Unknown Organization [facility] Address [address] [place] [address] Care Team Providers Care Patient Registrar Name Role Phone No Ref-Primary, Physician Primary Care Provider Cristiana Israel PA-C Unavailable [phone] Cristiana Israel PA-C Unavailable [phone] Encounter Details Date Type Department Care Team (Late st Contact Info) Description 08/31/2023 External Order Results [facility] [address] [place] [address] Outside, Provider Social History Tobacco Use Types Packs/Day Years Used Date Smoking Tobacco: Never Smokeless Tobacco: Never Alcohol Use Standard Drinks/Week Comments Yes 0 (1 standard drink = 0.6 oz pur e alcohol) 3 drinks/week PHQ-2 Answer Date Recorded PHQ-2 Score 1 08/07/2021 Adolescent Education Answer Date Record ed Getting School Help Needed Not on file 08/04 Sex and Gender Information Value Date Recorded Sex Assigned at Not on file Gender Identity Female 02/19/2021 10:18 AM CDT Sexual Orientation Not on file documented as of this encounter Plan of Treatment Not on file documented as of this encounter Procedures Procedure Name Priority Date/Time Associated Diagnosis Comments HEMOGLOBIN Routine 08/31/2023 11:18 AM ACCOUNT SERVICES COORDINATOR documented in this encounter Results * (ABNORMAL) Hemoglobin (08/31/2023 11:18 AM ACCOUNT SERVICES COORDINATOR) Hemoglobin (External) 9.7(L) 12.0 - 15.0 G/DL NON-INTERFACED (ONBASE SCANS) Blood BLOOD SPECIMEN / Unknown 08/31/2023 11:18 AM ACCOUNT SERVICES COORDINATOR Narrative [facility] - 09/08/2023 12:19 PM ACCOUNT SERVICES COORDINATOR Verified by Guerline Hedrick on 09/08/2023. Provider Outside LAB - BLOOD ORDERABL ES BRELISA PFT NON-INTERFACED (ONBASE SCANS) documented in this encounter Visit Diagnoses Not on filedocumented in this encounter Additional Health Concerns Assessment Noted Time PHQ-9 Depression Total Score: 2 08/07/20 11:02 AM CDT documented as of this encounter Care Teams Patient Registrar Relationship Specialty Start Date End Date No Ref-Primary, Physician PCP - General 02/13/21 Cristiana Israel PA-C [address] [facility] [place] [id number] Assigned PCP 12/13/22 Cristiana Israel PA-C [address] [facility] [place] [id number] Assigned Pain Medication Provider 09/26/23 11/11/23 documented as of this encounter
== END 2024-02-20 01:04 | disposition home or self-care (01) ==
LOC: ED 02-20 00:57
PROVIDERS: Family Medicine; Emergency Provider Family Medicine
DX: N39.0 Urinary tract infection, site not specified (principal)
CPT/HCPCS: 81001; 81003; 81025; 87086; 99282; 99283